=== PATIENT | male | born 1980 | race Hispanic/Latino ===

== ENCOUNTER 2017-03-02 07:56 | Outpatient (CLI) | payer OTHER | END 2017-03-02 07:57 | disposition home or self-care (01) | LOC: DTY/OP 07:56 | PROVIDERS: ATTEND Specialist | DX: Z01.818 Encounter for other preprocedural examination (principal); E66.01 Morbid (severe) obesity due to excess calories | CPT/HCPCS: 97802 ==

== ENCOUNTER 2017-05-05 19:14 | Emergency (ER) | payer OTHER ==
[2017-05-05 20:01] LABS: #Basophils 0.1 thou/uL (0.0-0.2); #Eosinphils 0.3 thou/uL (0.0-0.7); #Lymphocytes 3.7 thou/uL (1.20-3.40); #Monocytes 0.7 thou/uL (0.11-0.59); #Neutrophils 4.7 thou/uL (1.40-6.50); %Basophils 0.6 % (0.0-1.0); %Lymphocytes 39.4 % (21.0-51.0); Hemoglobin 15.6 g/dL (14.0-18.0); Mean Corpuscular HGB CONC 33.1 g/dL (32.0-36.0); Mean Corpuscular Volume 90.7 fl (80.0-94.0); Mean Platelet Volume 10.8 fL (7.4-10.4); Platelet Count 197 thou/uL (130-400); RBC Distribution Width 12.7 % (11.5-14.5); White Blood Cell (WBC) Count 9.4 thou/uL (4.8-10.8)
[2017-05-05 20:22] LABS: ALT (SGPT) 55 U/L (8-55); AST (SGOT) 32 U/L (5-34); Albumin 4.1 g/dL (3.5-5.0); Alkaline Phosphatase 73 U/L (40-150); Anion Gap 13 mmol/L (10-20); BUN (Urea Nitrogen) 19 mg/dL (8.9-20.6); Bilirubin, Total 0.4 mg/dL (0.2-1.2); Calc. Creatinine Clearance 0 mL/min (70-130); Calcium 9.1 mg/dL (7.8-10.44); Carbon Dioxide 21 mmol/L (22-29); Chloride 107 mmol/L (98-107); Estimated GFR-MDRD Greater than 90; Globulin 3.9 g/dL (2.4-3.5); Glucose 116 mg/dL (70-105); Potassium 3.8 mmol/L (3.5-5.1); Sodium 137 mmol/L (136-145)
== END 2017-05-05 21:05 | disposition home or self-care (01) ==
LOC: ERS 19:14
DX: G51.0 Bell's palsy (principal); E11.9 Type 2 diabetes mellitus without complications
CPT/HCPCS: 36415; 36416; 80053; 85025; 99284

== ENCOUNTER 2017-05-31 16:15 | Inpatient (IN) | payer OTHER ==
--- NOTE | 2017-06-01 00:54 | HP ---
Scheduled for surgery next week. HISTORY OF PRESENT ILLNESS: Rodrigo Hernandez is a 36-year-old male who presented to our bariatric pr ogram, morbidly obese, interested in laparoscopic sleeve gastrectomy. He says he has tried several w eight loss programs without durable weight loss. He has been seen by Psychology, felt to be a good c andidate, initially presented 277 pounds, BMI of 46, ideal body weight of 42 pounds, highest weight i n the past has been 280 pounds, lowest weight 202 pounds. Today, he is 273 pounds, 5 feet 5 inches, 45 BMI. He has been started on metformin 500 mg b.i.d., pravastatin 20 mg once a day. Cholesterol u pper limits of normal last visit. PAST MEDICAL HISTORY: Diabetes, upper limits of normal cholesterol. PAST SURGICAL HISTORY: None. FAMILY HISTORY: Noncontributory. TOBACCO: None. ALCOHOL: Rarely. ALLERGIES: None. 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 He has previously smoked, but has stopped smoking. He is and father of 3 and does office work. PHYSICAL EXAMINATION: VITAL SIGNS: Weight 273 pounds, height 5 feet 5 inches, 45 BMI, blood pressure 110/78, pulse 109, an d temperature 99 degrees. HEAD, EYES, EARS, NOSE, AND THROAT: Unremarkable. LYMPHATIC: Axilla, neck, groins without lymphadenopathy. LUNGS: Clear to auscultation. CARDIAC: Regular rate and rhythm without murmur or gallop. ABDOMEN: No evident hernias. EXTREMITIES: Unremarkable. No ankle edema, no venous stasis changes. NEUROLOGIC: Intact without focal deficit. Cranial nerves intact. ASSESSMENT AND PLAN: 1. Morbid obesity. We will plan laparoscopic sleeve gastrectomy. Risk of infection, bleeding, and reoperation explained, he consents. 2. No history of gastroesophageal reflux disease. No history of venous stasis changes. No history of cardiac disease. 3. Diabetes mellitus. 4. Upper limits of normal cholesterol, started on pravastatin.
[2017-06-06] MEDS ORDERED: Ketorolac Tromethamine 30 MG/ML VIAL ONE (08:40)
[2017-06-06] MEDS ORDERED: Heparin 5,000 UNITS/ML VIAL ONE ×2 (08:40)
[2017-06-06] MEDS ORDERED: Scopolamine 1.5 mg/72 hour Patch ONE (08:40)
[2017-06-06] MEDS ORDERED: cefOXitin 2 GM, Syringe 1 ML in Sterile Water 10 ML SLOW IVP SCH ×4 (08:45)
[2017-06-06] MEDS ORDERED: Bupivacaine HCl 0.5%/Epinephrine 1:200,000/PF 30 ml Vial ONE (09:47)
[2017-06-06] MEDS ORDERED: Midazolam HCl 2 mg/2 ml Vial ONE (09:50)
[2017-06-06] MEDS ORDERED: Fentanyl 250 MCG/5 ML VIAL ONE (09:55)
[2017-06-06] MEDS ORDERED: Hydrocodone-Acetamin 15 ML UDCUP PO PRN (10:16)
[2017-06-06] MEDS ORDERED: Ondansetron HCl/PF 4 MG/2 ML Vial IVP PRN ×2 (10:16→18:23)
[2017-06-06] MEDS ORDERED: diphenhydrAMINE 50 MG/ML VIAL IVP PRN (10:16)
[2017-06-06] MEDS ORDERED: Dextrose 5% in Water 1,000 ML IV PRN (10:16)
[2017-06-06] MEDS ORDERED: HumaLOG 300 UNITS/3 ML VIAL SC PRN (10:16)
[2017-06-06] MEDS ORDERED: hydrALAZINE 20 MG/ML VIAL SLOW IVP PRN (10:16)
[2017-06-06] MEDS ORDERED: Morphine 4 MG/ML VIAL SLOW IVP PRN ×2 (10:16)
[2017-06-06] MEDS ORDERED: Dextrose 50% Abboject 50 ML SYRINGE SLOW IVP PRN (10:16)
[2017-06-06] MEDS ORDERED: Ondansetron HCl/PF 4 MG/2 ML Vial ONE ×2 (10:54→11:31)
[2017-06-06] MEDS ORDERED: Succinylcholine Chloride 20 MG/ML 10 ml SYRINGE FS ONE (11:31)
[2017-06-06] MEDS ORDERED: PROPOFOL 200 MG/20 ML VIAL ONE (11:31)
[2017-06-06] MEDS ORDERED: Dexamethasone 20 MG/5 ML VIAL ONE ×2 (11:31)
[2017-06-06] MEDS ORDERED: PHENYLEPHRINE-NS 100 MCG/ML 10 ML SYRINGE ONE (11:31)
[2017-06-06] MEDS ORDERED: Glycopyrrolate 0.2 MG/ML 5 ML SYRINGE ONE (11:31)
[2017-06-06] MEDS ORDERED: Lidocaine 1% PF 5 ML VIAL ONE (11:31)
[2017-06-06] MEDS ORDERED: Fentanyl 100 MCG/2 ML VIAL ONE (11:47)
--- NOTE | 2017-06-06 11:50 | OP ---
DATE OF PROCEDURE: 06/06/2017 PREOPERATIVE DIAGNOSES: Morbid obesity, diabetes, elevated cholesterol, 277 pounds, 46 BMI on initia l evaluation, preoperatively 273 pounds, 45 BMI. POSTOPERATIVE DIAGNOSES: Morbid obesity, diabetes, elevated cholesterol, 277 pounds, 46 BMI on initi al evaluation, preoperatively 273 pounds, 45 BMI. PROCEDURE: Laparoscopic sleeve gastrectomy, 36 Samoan bougie, staple line within 4 cm of the pylorus , completion endoscopy. SURGEON: Ramiro Flores M.D. ANESTHESIA: General. Local 0.25% Marcaine with epinephrine 60 mL. NOTE: Normal appearing malleable nonfatty liver. Generalized survey of the abdominal cavity unremar kable. PROCEDURE: The patient was taken to the operating room where under general anesthesia, abdomen was p repared with ChloraPrep, draped in routine fashion. Local anesthetic infiltrated into the skin and s ubcutaneous tissue about each port site. Supraumbilical incision made. Pneumoperitoneum to 15 mmHg obtained with the Veress needle, replacing it with a 5 port. Bilateral far lateral subcostal incisio n made and 5 ports placed. Bilateral upper abdominal incisions made mid clavicular lines and on the left, a 15 mm, on the right a 12 mm port placed under laparoscopic visualization. Subxiphoid incisio n made left and a Nathansen liver retractor placed to retract the left lobe of liver anteriorly. Gas trocolic ligament taken down with the LigaSure beginning at the distal stomach adjacent to the greate r curvature mobilizing the greater curvature from the gastrocolic and gastrosplenic ligament up to th e angle of His, mobilizing the angle of His. The stomach cleared within of 3.5 to 4 cm of the pyloru s. A 36 bougie placed orally by Anesthesia and laparoscopically draped along the lesser curvature to wards the pylorus. Endo green load stapler fired. The initial fire dividing the stomach against the bougie, and then gold fire performed taking care not to narrow the incisura. Serial fires of blue l oad up to the angle of His formed taking care to avoid redundancy of the stomach and staying clear of the gastroesophageal junction. The stomach was freed and brought out through the 15 mm port site wh ich was closed by approximating the fascia with 0 Vicryl [id number]-vi-[id number] suture GraNee needle. Endos cope placed per os under direct visualization and using air insufflation passed throughout the esopha brody through the stomach to the pylorus visualizing the duodenum, stomach staple line which were intac t. There was no leaks. Stomach deflated and scope withdrawn esophagus was normal. Staple line insp ected and clips applied for hemostasis. Area irrigated. Hemostasis ensured. Irrigant and pneumoper itoneum evacuated. As all this instruments removed and all skin incisions approximated with interrup aniceto subdermal 4-0 Monocryl and DermaGlue applied.
[2017-06-06 12:51] VITALS: BMI 42.9
[2017-06-06] MEDS ORDERED: Ondansetron ODT 4 MG TAB PO PRN ×3 (14:18→18:46)
[2017-06-06] MEDS ORDERED: Metoclopramide HCl 10 MG/2 ML VIAL IVP PRN (14:19)
[2017-06-06] MEDS: Ketorolac Tromethamine 30 MG/ML VIAL IVP SCH ×2 (15:48→20:17)
[2017-06-06] MEDS: Acetaminophen 1,000 MG in Premix Bag 1 BAG IVPB SCH ×2 (15:50→20:17)
[2017-06-06] MEDS: 1/2 NS w/KCL 20 mEq 1,000 ML IV SCH ×3 (16:51→20:18)
[2017-06-06] MEDS ORDERED: Ondansetron ODT 8 MG TAB SL PRN (18:23)
[2017-06-06] MEDS ORDERED: Ondansetron ODT 8 MG TAB PO PRN (18:23)
[2017-06-06] MEDS ORDERED: Ondansetron ORAL SOLN. 4 MG/5 ML UDCUP PO PRN ×2 (18:23)
[2017-06-06] MEDS ORDERED: Enoxaparin Sodium 40 MG/0.4 ML SYRINGE SC SCH (21:00)
[2017-06-07] MEDS: Acetaminophen 1,000 MG in Premix Bag 1 BAG IVPB SCH ×2 (03:49→07:46)
[2017-06-07] MEDS: Ketorolac Tromethamine 30 MG/ML VIAL IVP SCH ×2 (03:50→07:46)
[2017-06-07 05:06] LABS: #Lymphocytes 1.8 thou/uL (1.20-3.40); #Monocytes 0.7 thou/uL (0.11-0.59); #Neutrophils 12.5 thou/uL (1.40-6.50); %Basophils 0.2 % (0.0-1.0); %Eosinophils 0.1 % (0.0-10.0); %Monocytes 4.3 % (0.0-10.0); %Neutrophils 83.5 % (42.0-75.0); Hemoglobin 14.2 g/dL (14.0-18.0); Mean Corpuscular HGB CONC 33.3 g/dL (32.0-36.0); Mean Corpuscular Hemoglobin 29.3 pg (27.0-31.0); Mean Platelet Volume 10.3 fL (7.4-10.4); Platelet Count 259 thou/uL (130-400); RBC Distribution Width 12.6 % (11.5-14.5); Red Blood Cell (RBC) Count 4.85 mill/uL (4.70-6.10); White Blood Cell (WBC) Count 14.9 thou/uL (4.8-10.8)
[2017-06-07 05:09] LABS: Anion Gap 8 mmol/L (10-20); BUN (Urea Nitrogen) 14 mg/dL (8.9-20.6); Calc. Creatinine Clearance 241 mL/min (70-130); Calcium 9.2 mg/dL (7.8-10.44); Carbon Dioxide 24 mmol/L (22-29); Chloride 107 mmol/L (98-107); Estimated GFR-MDRD Greater than 90; Glucose 126 mg/dL (70-105); Potassium 4.4 mmol/L (3.5-5.1); Sodium 135 mmol/L (136-145)
[2017-06-07] MEDS ORDERED: Acetaminophen 500 MG TAB PO PRN (08:00)
[2017-06-07] MEDS ORDERED: traMADol HCl 50 MG TAB PO PRN ×2 (08:00)
[2017-06-07 08:08] VITALS: TEMP 98
[2017-06-07] MEDS ORDERED: Pantoprazole 40 MG VIAL IVP SCH ×2 (09:00)
--- NOTE | 2017-06-07 11:12 | PRG ---
DATE OF SERVICE: 06/06/2017 SUBJECTIVE: Mr. Hernandez is doing well today, 1 day status post laparoscopic sleeve gastrectomy. He do es not have any nausea. He is tolerating liquids. PHYSICAL EXAMINATION: VITAL SIGNS: His temperature is 98 degrees, heart rate 69, respiratory rate 16, and 147/92. LUNGS: Clear to auscultation. CARDIAC: Regular rate and rhythm without murmur or gallop. ABDOMEN: Soft, nontender, good bowel sounds. Surgical wounds look good and are clean and dry. LABORATORY DATA: This morning, his hemoglobin is 14. White count 14. Basic metabolic profile is no rmal. Glucose 126. Accu-Cheks 117-162. ASSESSMENT AND PLAN: Doing well after laparoscopic sleeve gastrectomy. We will plan discharge home later today. He will take [id number] Tylenol and if necessary take tramadol. As a last resort , he will take hydrocodone elixir, prescription is given. He will take Prilosec for 3 weeks. Follow up in my office per appointment in 1-2 weeks. Diet and activity as tolerated. No lifting restricti ons.
[2017-06-07 11:38] VITALS: BP 135/91
--- NOTE | 2017-06-07 15:49 | DIS ---
DATE OF ADMISSION: 06/06/2017 DATE OF DISCHARGE: 06/07/2017 DISCHARGE MEDICATIONS: [id number]-[id number] Tylenol, tramadol as needed, [place] elixir 7.5/325 as needed for breakthrough pain over tramadol, Prilosec xnmf-fes-xmiisgo for 3 months. Hold his metformin for now as he will be on clear to full liquids bariatric for the next 2 weeks and pureed after that. Bina ck his Accu-Cheks at home. Resume metformin if Accu-Cheks are high, pravastatin resume in the next f ew days q.a.m. HISTORY: A 36-year-old male going to bariatric program, attending the seminar, visiting the psycholo gist felt to be a good candidate for laparoscopic sleeve gastrectomy having preoperative labs which w ere essentially normal, undergoing laparoscopic sleeve gastrectomy yesterday morning and discharged h ome today with the above instructions. No lifting restrictions. He can bathe and shower ad niraj. Re sume activity as tolerated. MEDICATIONS: As above.
== END 2017-06-07 16:05 | disposition home or self-care (01) | DRG 621 ==
LOC: SURG A 06-06 07:39
PROVIDERS: ADMIT Specialist; ATTEND Specialist
PROC: 0DB64Z3 Excision of Stomach, Percutaneous Endoscopic Approach, Vertical (ICD-10-PCS; principal; 2017-06-06)
DX: E66.01 Morbid (severe) obesity due to excess calories (principal); E11.9 Type 2 diabetes mellitus without complications; E78.00 Pure hypercholesterolemia, unspecified; Z68.42 Body mass index [BMI] 45.0-49.9, adult; Z79.84 Long term (current) use of oral hypoglycemic drugs
CPT/HCPCS: 36415; 36416; 80048; 85025; 88307; 88312; 96374; A4216; C9113; J0131; J0670; J0694; J1100; J1644; J1650; J1885; J2001; J2250; J2405; J2704; J3010; Q0162